=== PATIENT | male | born 1960 | race Caucasian/White ===

== ENCOUNTER 2022-06-15 09:26 | Day surgery (SDC) | payer OTHER ==
[~2022-06-15] VITALS: Ht 170.2 cm; Wt 99.8 kg
[2022-06-15] MEDS ORDERED: VENLAFAXINE75 M2 PO (10:29)
[2022-06-15] MEDS ORDERED: XANAX0.5 MG PO (10:29)
[2022-06-15] MEDS ORDERED: LISINOPRIL2.5 MG PO (10:30)
[2022-06-15] MEDS ORDERED: TRAZODONE100 MG PO (10:31)
[2022-06-15] MEDS ORDERED: ATORVASTATIN CA10 MG PO (10:32)
[2022-06-15] MEDS ORDERED: XARELTO20 MG PO (10:32)
[2022-06-15 11:55] VITALS: BP 106/70
== END 2022-06-15 12:05 | disposition home or self-care (01) ==
LOC: ORM 09:26
PROVIDERS: ATTEND Physical Medicine & Rehabilitation Pain Medicine
DX: G89.4 Chronic pain syndrome (principal); M47.816 Spondylosis without myelopathy or radiculopathy, lumbar region; Z20.822 Contact with and (suspected) exposure to COVID-19

== ENCOUNTER 2022-09-07 07:10 | Day surgery (SDC) | payer OTHER ==
[~2022-09-07] VITALS: Ht 170.2 cm; Wt 102.1 kg
[~2022-09-07 07:10] MED LIST: ATORVASTATIN CA10 MG PO; LISINOPRIL2.5 MG PO; TRAZODONE100 MG PO; VENLAFAXINE75 M2 PO; XANAX0.5 MG PO; XARELTO20 MG PO
[2022-09-07 11:45] VITALS: BP 137/89
== END 2022-09-07 11:19 | disposition home or self-care (01) ==
LOC: ORM 07:10
DX: G89.4 Chronic pain syndrome (principal); M47.816 Spondylosis without myelopathy or radiculopathy, lumbar region

== ENCOUNTER 2022-12-21 07:15 | Day surgery (SDC) | payer OTHER ==
[~2022-12-21] VITALS: Ht 170.2 cm; Wt 108.9 kg
[2022-12-21 11:59] VITALS: BP 136/84
== END 2022-12-21 09:54 | disposition home or self-care (01) ==
LOC: ORM 07:15
PROVIDERS: ATTEND Student in an Organized Health Care Education/Training Program
DX: M47.816 Spondylosis without myelopathy or radiculopathy, lumbar region (principal); G89.4 Chronic pain syndrome